=== PATIENT | female | born 1980 | race African-American/Black ===

== ENCOUNTER 2021-08-20 10:39 | Day surgery (SDC) | payer OTHER ==
[~2021-08-20] VITALS: Ht 160 cm; Wt 74.8 kg
[2021-08-20 11:21] VITALS: BP 128/88
== END 2021-08-20 17:58 | disposition home or self-care (01) ==
LOC: OUT 10:39 → EDBD 12:30 → OUT 17:58
PROVIDERS: ATTEND Obstetrics & Gynecology
DX: N93.9 Abnormal uterine and vaginal bleeding, unspecified (principal); N94.6 Dysmenorrhea, unspecified; N80.0 Endometriosis of uterus; N83.291 Other ovarian cyst, right side; N83.292 Other ovarian cyst, left side; N73.6 Female pelvic peritoneal adhesions (postinfective); N35.92 Unspecified urethral stricture, female; N87.9 Dysplasia of cervix uteri, unspecified; N72 Inflammatory disease of cervix uteri; D25.1 Intramural leiomyoma of uterus; N75.1 Abscess of Bartholin's gland; K21.9 Gastro-esophageal reflux disease without esophagitis; F17.210 Nicotine dependence, cigarettes, uncomplicated; Z79.899 Other long term (current) drug therapy; Z88.8 Allergy status to other drugs, medicaments and biological substances; Z80.3 Family history of malignant neoplasm of breast
CPT/HCPCS: 36415; 52281; 56740; 58552; 81025; 85025; 87015; 87070; 87075; 87102; 87116; 87205; 87206; 87635; 88307; J0171; J0690; J1100; J1170; J2175; J2250; J2405; J2704; J2710; J3010; J7120